=== PATIENT | male | born 1975 ===

== ENCOUNTER 2018-04-25 05:47 | Emergency (ER) | payer BC ==
[~2018-04-25] VITALS: Ht 180.3 cm; Wt 78.3 kg
[~2018-04-25 05:47] MED LIST: Z.0.NO CURRENT MEDS
[2018-04-25 05:48] VITALS: BP 114/72; PULSE 73; RESP 18; TEMP 98.6; O2SAT 99
[2018-04-25 06:01] VITALS: BP 114/72; PULSE 73; RESP 18; TEMP 98.6; O2SAT 99
[2018-04-25 06:26] VITALS: BP 125/73; PULSE 72; RESP 18; O2SAT 98
[2018-04-25 06:28] LABS: BLOOD, URINE NEG (NEG); GLUCOSE,URINE NEG (NEG); KETONE, URINE TRACE mg/dL (NEG); NITRITE,URINE NEG (NEG); PH, URINE 5.5 (5.0-8.5); URINE COLOR YELLOW (YELLW/STRAW); URINE LEUKOCYTE ESTERASE SMALL (NEG)
[2018-04-25 06:30] LABS: AUTOMATED NEUTROPHIL # 4.8 TH/MM3 (1.8-7.7); BASOPHIL # 0.1 TH/MM3 (0-0.2); BASOPHIL % 0.9 % (0.0-2.0); EOSINOPHIL # 0.2 TH/MM3 (0-0.4); EOSINOPHIL % 2.3 % (0.0-4.0); HEMOGLOBIN 13.4 GM/DL (13.0-17.0); LYMPH % 15.2 % (9.0-44.0); MEAN CELL VOLUME 91.2 FL (80.0-100.0); MEAN CORPUSCULAR HEMOGLOBIN 29.8 PG (27.0-34.0); MEAN CORPUSCULAR HGB CONC 32.6 % (32.0-36.0); MEAN PLATELET VOLUME 7.4 FL (7.0-11.0); MONO % 10.2 % (0.0-8.0); MONOCYTE # 0.7 TH/MM3 (0-0.9); NEUT % 71.4 % (16.0-70.0); PLATELET COUNT 208 TH/MM3 (150-450); RED BLOOD COUNT 4.49 MIL/MM3 (4.50-5.90); WHITE BLOOD COUNT 6.8 TH/MM3 (4.0-11.0)
[2018-04-25 06:33] LABS: BILIRUBIN, URINE NEG (NEG)
--- NOTE | 2018-04-25 06:33 | PD ---
HPI Chief Complaint: Flank/Kidney Pain Time Seen by Provider: 06:03 Travel History International Travel<30 days: No Contact w/Intl Traveler<30days: No Traveled to known affect area: No History of Present Illness HPI 42-year-old male presents the ER for evaluation of right upper quadrant pain that started last 3 days but has been getting worse. Pain is rated 5 out of 10 , comes and goes, has been getting worse, he tried [id number]-lzwahsq ibuprofen and Tylenol with no help, worse when he takes a deep breath in, nothing makes it better, no trauma to the abdomen or chest, no chest pain or shortness of breath although he says that it hurts when he takes a deep breath in, no fever or chills or night sweats or systemic symptoms. He has normal bowel movement yesterday without blood or diarrhea. He has no nausea or vomiting. He says he never had this type of pain before. PFSH Past Medical History Medical History: Denies Significant Hx Diminished Hearing: No Influenza Vaccination: No Past Surgical History Surgical History: No Previous Surgery Social History Alcohol Use: Yes (OCC) Tobacco Use: Yes (1 PPD) Substance Use: No Allergies-Medications (Allergen,Severity, Reaction): Coded Allergies: No Known Allergies (Verified Adverse Reaction, Unknown, 04/25/18) Reported Meds & Prescriptions Reported Meds & Active Scripts Active [place] (Hydrocodone-Acetaminophen) 7.5-325 mg Tab 1 Tab PO Q4H PRN Augmentin (Amoxicillin-Clavulanate) 875-125 Mg Tab 1 Tab PO BID 10 Days Review of Systems Except as stated in HPI: all other systems reviewed are Neg Physical Exam Narrative GENERAL: Alert oriented 3 no acute distress SKIN: Focused skin assessment warm/dry. HEAD: Atraumatic. Normocephalic. EYES: Pupils equal and round. No scleral icterus. No injection or drainage. ENT: No nasal bleeding or discharge. Mucous membranes pink and moist. NECK: Trachea midline. No JVD. CARDIOVASCULAR: Regular rate and rhythm. No murmur appreciated. RESPIRATORY: No accessory muscle use. Clear to auscultation. Breath sounds equal bilaterally. GASTROINTESTINAL: Right upper quadrant tenderness, positive Crocker sign, abdomen soft, nondistended. Hepatic and splenic margins not palpable. MUSCULOSKELETAL: No obvious deformities. No clubbing. No cyanosis. No edema. NEUROLOGICAL: Awake and alert. No obvious cranial nerve deficits. Motor grossly within normal limits. Normal speech. PSYCHIATRIC: Appropriate mood and affect; insight and judgment normal. Data Data Last Documented VS Vital Signs Date Time Temp Pulse Resp B/P (MAP) Pulse Ox O2 Delivery O2 Flow Rate FiO2 04/25/18 09:00 80 16 101/58 (72) 96 04/25/18 06:55 99.4 04/25/18 06:26 Room Air Orders Orders Complete Blood Count With Diff (04/25/18 06:03) Comprehensive Metabolic Panel (04/25/18 06:03) Lipase (04/25/18 06:03) Urinalysis - C+S If Indicated (04/25/18 06:03) Ct Abd/Pel W Iv Contrast(Rout) (04/25/18 ) Urine Culture (04/25/18 06:20) Iohexol 350 Inj (Omnipaque 350 Inj) (04/25/18 06:47) Ceftriaxone Inj (Rocephin Inj) (04/25/18 07:45) Chest, Pa & Lat (04/25/18 07:40) Ketorolac Inj (Toradol Inj) (04/25/18 08:15) Ed Discharge Order (04/25/18 08:19) Labs Laboratory Tests Test 04/25/18 06:20 White Blood Count 6.8 TH/MM3 Red Blood Count 4.49 MIL/MM3 Hemoglobin 13.4 GM/DL Hematocrit 41.0 % Mean Corpuscular Volume 91.2 FL Mean Corpuscular Hemoglobin 29.8 PG Mean Corpuscular Hemoglobin Concent 32.6 % Red Cell Distribution Width 12.0 % Platelet Count 208 TH/MM3 Mean Platelet Volume 7.4 FL Neutrophils (%) (Auto) 71.4 % Lymphocytes (%) (Auto) 15.2 % Monocytes (%) (Auto) 10.2 % Eosinophils (%) (Auto) 2.3 % Basophils (%) (Auto) 0.9 % Neutrophils # (Auto) 4.8 TH/MM3 Lymphocytes # (Auto) 1.0 TH/MM3 Monocytes # (Auto) 0.7 TH/MM3 Eosinophils # (Auto) 0.2 TH/MM3 Basophils # (Auto) 0.1 TH/MM3 CBC Comment DIFF FINAL Differential Comment Urine Collection Type CLEAN CATCH Urine Color YELLOW Urine Turbidity CLEAR Urine pH 5.[address] [place] GREATER/EQUAL 1.030 Urine Protein TRACE mg/dL Urine Glucose (UA) NEG mg/dL Urine Ketones TRACE mg/dL Urine Occult Blood NEG Urine Nitrite NEG Urine Bilirubin NEG Urine Urobilinogen 1.0 MG/DL Urine Leukocyte Esterase SMALL Urine RBC 0-3 /hpf Urine WBC 25-49 /hpf Urine Squamous Epithelial Cells 0-5 /hpf Urine Amorphous Sediment MOD Urine Bacteria FEW /hpf Microscopic Urinalysis Comment CULTURE INDICATED Urine Collection Time 0620 Blood Urea Nitrogen 16 MG/DL Creatinine 0.96 MG/DL Random Glucose 106 MG/DL Total Protein 8.4 GM/DL Albumin 4.2 GM/DL Calcium Level 8.6 MG/DL Alkaline Phosphatase 91 U/L Aspartate Amino Transf (AST/SGOT) 24 U/L Alanine Aminotransferase (ALT/SGPT) 31 U/L Total Bilirubin 1.3 MG/DL Sodium Level 138 MEQ/L Potassium Level 3.7 MEQ/L Chloride Level 104 MEQ/L Carbon Dioxide Level 28.7 MEQ/L Anion Gap 5 MEQ/L Estimat Glomerular Filtration Rate 85 ML/MIN Lipase 110 U/L [facility] Medical Decision Making Medical Screen Exam Complete: Yes Emergency Medical Condition: Yes Differential Diagnosis UTI, cholecystitis, nephrolithiasis, pyelonephritis. Narrative Course 41-year-old here for evaluation of abdominal pain. Pending labs and CAT scan. Will be signed out to dr. Willoughby next shift pending disposition. Diagnosis Primary Impression: UTI (urinary tract infection) Qualified Codes: N39.0 - Urinary tract infection, site not specified Scripts Hydrocodone-Acetaminophen ([place]) 7.5-325 mg Tab 1 TAB PO Q4H Y for PAIN, #12 TAB 0 Refills Prov: Hussain Willoughby MD 04/25/18 Amoxicillin-Clavulanate (Augmentin) 875-125 Mg Tab 1 TAB PO BID for Infection for 10 Days, #20 TAB 0 Refills Prov: Hussain Willoughby MD 04/25/18 Disposition: DISCHARGE HOME Condition: Stable Geovanny Belcher MD Apr 25, 2018 06:33
[2018-04-25 06:36] LABS: AMORPHOUS SEDIMENT, URINE MOD; BACTERIA, URINE FEW /hpf; CHLORIDE 104 MEQ/L (98-107); RBC, URINE 0-3 /hpf (0-3); SODIUM (NA) 138 MEQ/L (136-145); SQUAMOUS EPITHELIAL CELL URINE 0-5 /hpf (0-5)
[2018-04-25 06:40] LABS: ALBUMIN 4.2 GM/DL (3.4-5.0); BICARBONATE 28.7 MEQ/L (21.0-32.0); BLOOD UREA NITROGEN 16 MG/DL (7-18); CALCIUM 8.6 MG/DL (8.5-10.1); GLUCOSE,RANDOM 106 MG/DL (74-106)
[2018-04-25 06:43] LABS: ALT (GPT) 31 U/L (12-78); AST (GOT) 24 U/L (15-37); CREATININE 0.96 MG/DL (0.60-1.30); GLOMERULAR FILTRATION RATE 85 ML/MIN (>89)
[2018-04-25 06:45] LABS: TOTAL BILIRUBIN ADULT 1.3 MG/DL (0.2-1.0); TOTAL PROTEIN 8.4 GM/DL (6.4-8.2)
[2018-04-25 06:46] LABS: ALKALINE PHOSPHATASE 91 U/L (45-117)
[2018-04-25] MEDS ORDERED: IOHEXOL 350 MG/ML 10 ML VIAL (for RAD DIAG) IVCONTRAST ONE (06:47)
[2018-04-25 06:55] VITALS: BP 141/75; PULSE 76; RESP 16; TEMP 99.4; O2SAT 97
--- NOTE | 2018-04-25 07:26 | RADRPT ---
EXAM DATE: 04/25/2018 6:46 AM EDT AGE/SEX: 42 years / Male INDICATIONS: Right flank pain. CLINICAL DATA: This is the patient's initial encounter. Patient reports that signs and symptoms have been present for 1 day and indicates a pain score of 8/10. MEDICAL/SURGICAL HISTORY: None. None. ORAL CONTRAST: No oral contrast ingested. RADIATION DOSE: 7.85 CTDI (mGy) COMPARISON: No prior [place] exams available for comparison. TECHNIQUE: Multiple contiguous axial images were obtained through the abdomen and pelvis following b olus infusion of 100 ml Omnipaque 350 (iohexol) nonionic water-soluble contrast as a single exam do se. No oral contrast ingested. Using automated exposure control and adjustment of the mA and/or kV a ccording to patient size, the radiation dose was kept as low as reasonably achievable to obtain optim al diagnostic quality images. FINDINGS: Lower Lungs: Patchy nodular consolidation seen of the right lung base. Individual subpleural nodules measures 9 mm, series 5 image 9 and 13 mm on series 5 image 12. This process is presumably infectious or inflammatory but requires follow-up. Liver: The liver has a homogeneous density without space-occupying lesion. There is no dilation of th e biliary tree. Spleen: Homogeneous density without enlargement. Pancreas: Unremarkable without mass or calcification. Kidneys: Normal in size and shape. No evidence of mass or hydronephrosis. Adrenal Glands: Unremarkable. Aorta: The aorta and proximal iliac vessels are grossly unremarkable without aneurysmal dilation. Bowel/Mesentery: The bowel loops are grossly unremarkable. The cecum and sigmoid colon have a normal configuration. Appendix within normal limits. Abdominal Wall: Intact. Retroperitoneum: No evidence of adenopathy in the retrocrural, para-aortic, or deep pelvic regions. Bladder: Contours are smooth. Reproductive Organs: No abnormal masses or calcifications seen. Inguinal: The inguinal region is unremarkable without evidence of adenopathy. Bony Structures: Unremarkable. CONCLUSION: 1. No acute abnormality demonstrated within the abdomen or pelvis. 2. There is patchy nodular infiltrate of the visualized right lung base, most likely infectious or i nflammatory. Clinical correlation and if applicable medical management recommended. A follow-up nonco ntrast chest CT is suggested in 3 months. Electronically signed by: Carlo Hernández MD 04/25/2018 7:25 AM EDT
--- NOTE | 2018-04-25 07:26 | PD ---
Physical Exam Date Seen by Provider: Apr 25, 2018 Time Seen by Provider: 07:24 Narrative This 42-year-old male has been having some right flank pain for about 24 hours. Pain started off yesterday morning and has gotten progressively worse and is quite severe. It is aggravated by deep breathing. He does not have any dysuria. He does say that he was treated for gonorrhea's several months ago he was seen initially by Dr. Trinidad who ordered a complete workup. His hemoglobin is 13 4 with a white count of 6.8. Urinalysis shows 25-59 white cells. Data Data Last Documented VS Vital Signs Date Time Temp Pulse Resp B/P (MAP) Pulse Ox O2 Delivery O2 Flow Rate FiO2 04/25/18 06:55 99.4 76 16 141/75 (97) 97 04/25/18 06:26 Room Air Orders Orders Complete Blood Count With Diff (04/25/18 06:03) Comprehensive Metabolic Panel (04/25/18 06:03) Lipase (04/25/18 06:03) Urinalysis - C+S If Indicated (04/25/18 06:03) Ct Abd/Pel W Iv Contrast(Rout) (04/25/18 ) Urine Culture (04/25/18 06:20) Iohexol 350 Inj (Omnipaque 350 Inj) (04/25/18 06:47) Ceftriaxone Inj (Rocephin Inj) (04/25/18 07:45) Chest, Pa & Lat (04/25/18 07:40) Ketorolac Inj (Toradol Inj) (04/25/18 08:15) Labs Laboratory Tests Test 04/25/18 06:20 White Blood Count 6.8 TH/MM3 Red Blood Count 4.49 MIL/MM3 Hemoglobin 13.4 GM/DL Hematocrit 41.0 % Mean Corpuscular Volume 91.2 FL Mean Corpuscular Hemoglobin 29.8 PG Mean Corpuscular Hemoglobin Concent 32.6 % Red Cell Distribution Width 12.0 % Platelet Count 208 TH/MM3 Mean Platelet Volume 7.4 FL Neutrophils (%) (Auto) 71.4 % Lymphocytes (%) (Auto) 15.2 % Monocytes (%) (Auto) 10.2 % Eosinophils (%) (Auto) 2.3 % Basophils (%) (Auto) 0.9 % Neutrophils # (Auto) 4.8 TH/MM3 Lymphocytes # (Auto) 1.0 TH/MM3 Monocytes # (Auto) 0.7 TH/MM3 Eosinophils # (Auto) 0.2 TH/MM3 Basophils # (Auto) 0.1 TH/MM3 CBC Comment DIFF FINAL Differential Comment Urine Collection Type CLEAN CATCH Urine Color YELLOW Urine Turbidity CLEAR Urine pH 5.5 Urine Specific [place] GREATER/EQUAL 1.030 Urine Protein TRACE mg/dL Urine Glucose (UA) NEG mg/dL Urine Ketones TRACE mg/dL Urine Occult Blood NEG Urine Nitrite NEG Urine Bilirubin NEG Urine Urobilinogen 1.0 MG/DL Urine Leukocyte Esterase SMALL Urine RBC 0-3 /hpf Urine WBC 25-49 /hpf Urine Squamous Epithelial Cells 0-5 /hpf Urine Amorphous Sediment MOD Urine Bacteria FEW /hpf Microscopic Urinalysis Comment CULTURE INDICATED Urine Collection Time 0620 Blood Urea Nitrogen 16 MG/DL Creatinine 0.96 MG/DL Random Glucose 106 MG/DL Total Protein 8.4 GM/DL Albumin 4.2 GM/DL Calcium Level 8.6 MG/DL Alkaline Phosphatase 91 U/L Aspartate Amino Transf (AST/SGOT) 24 U/L Alanine Aminotransferase (ALT/SGPT) 31 U/L Total Bilirubin 1.3 MG/DL Sodium Level 138 MEQ/L Potassium Level 3.7 MEQ/L Chloride Level 104 MEQ/L Carbon Dioxide Level 28.7 MEQ/L Anion Gap 5 MEQ/L Estimat Glomerular Filtration Rate 85 ML/MIN Lipase 110 U/L [facility] Medical Record Reviewed: Yes Supervised Visit with JOSH: No Differential Diagnosis Differential includes cholecystitis, pyelonephritis, pneumonia Narrative Course CT scan is read as showing a nodular infiltrate in the visualized lung base. Because of this a chest x-ray was ordered which does not show any other abnormality. Patient clearly does have a urinary tract infection and question of some pneumonia. He does not have a clinical presentation of pneumonia and that he does not have a cough. He will be placed on Augmentin and he will be released. Diagnosis Primary Impression: Urinary tract infection Additional Impression: Pneumonia Scripts Hydrocodone-Acetaminophen ([place]) 7.5-325 mg Tab 1 TAB PO Q4H Y for PAIN, #12 TAB 0 Refills Prov: Hussain Adamson MD 04/25/18 Amoxicillin-Clavulanate (Augmentin) 875-125 Mg Tab 1 TAB PO BID for Infection for 10 Days, #20 TAB 0 Refills Prov: Hussain Adamson MD 04/25/18 Disposition: 01 DISCHARGE HOME Condition: Stable Hussain Adamson MD Apr 25, 2018 07:26
[2018-04-25] MEDS ORDERED: cefTRIAXone INJ 2,000 MG in SODIUM CHLORIDE 0.9% INJ 100 ML IV ONE (07:45)
--- NOTE | 2018-04-25 08:11 | RADRPT ---
EXAM DATE: 04/25/2018 8:04 AM EDT AGE/SEX: 42 years / Male INDICATIONS: Right lower chest/flank pain for over 24 hours progressively increasing. Painful deep i nspirations w/ no known injury. CLINICAL DATA: This is the patient's initial encounter. Patient reports that signs and symptoms have been present for 2 days and indicates a pain score of 8/10. MEDICAL/SURGICAL HISTORY: None. None. COMPARISON: [facility], CT ABDOMEN & PELVIS W CONTRAST, 04/25/2018. . FINDINGS: Frontal and lateral views of the chest demonstrate a normal-sized cardiac silhouette. No effusion, co nsolidation, or pneumothorax is identified. There is a linear opacity at the right lung base. The bon es and soft tissues demonstrate no acute finding. CONCLUSION: No acute cardiopulmonary abnormality is identified. There is a linear opacity at the right lung base representing either subsegmental atelectasis or parenchymal scar. Electronically signed by: Carlo Drake MD 04/25/2018 8:10 AM EDT
[2018-04-25] MEDS ORDERED: KETOROLAC TROMETHAMINE 30 MG/ML (IVP) VIAL IV PUSH ONE (08:15)
[2018-04-25] MEDS ORDERED: HYDR-3288 PO (08:16)
[2018-04-25] MEDS ORDERED: AUGM875T3 PO (08:16)
[2018-04-25 09:00] VITALS: BP 101/58
== END 2018-04-25 09:00 | disposition home or self-care (01) ==
LOC: PHED 05:47
DX: N39.0 Urinary tract infection, site not specified (principal); B96.1 Klebsiella pneumoniae [K. pneumoniae] as the cause of diseases classified elsewhere; J18.9 Pneumonia, unspecified organism; F17.200 Nicotine dependence, unspecified, uncomplicated
CPT/HCPCS: 71046; 74177; 80053; 81001; 83690; 85025; 87077; 87086; 87186; 96365; 96375; 99285; J0696; J1885; Q9967

== ENCOUNTER 2018-05-02 09:28 | Observation (INO) | payer BC ==
[~2018-05-02] VITALS: Ht 180.3 cm; Wt 76.8 kg
[2018-05-02] VITALS (7 sets, daily range): BP systolic 115–128; BP diastolic 69–76; PULSE 70–94; RESP 16–20; TEMP 96.9–98.3; O2SAT 97–100
[~2018-05-02 09:28] MED LIST changes: +AUGM875T3 PO; +HYDR-3288 PO; -Z.0.NO CURRENT MEDS
[2018-05-02 10:03] LABS: AUTOMATED NEUTROPHIL # 5.7 TH/MM3 (1.8-7.7); BASOPHIL # 0.1 TH/MM3 (0-0.2); BASOPHIL % 0.8 % (0.0-2.0); EOSINOPHIL # 0.2 TH/MM3 (0-0.4); HEMATOCRIT 40.5 % (39.0-51.0); HEMOGLOBIN 13.7 GM/DL (13.0-17.0); LYMPH % 22.3 % (9.0-44.0); LYMPHOCYTE # 1.9 TH/MM3 (1.0-4.8); MEAN CELL VOLUME 89.1 FL (80.0-100.0); MEAN CORPUSCULAR HEMOGLOBIN 30.2 PG (27.0-34.0); MEAN CORPUSCULAR HGB CONC 33.9 % (32.0-36.0); MEAN PLATELET VOLUME 7.2 FL (7.0-11.0); MONO % 4.6 % (0.0-8.0); MONOCYTE # 0.4 TH/MM3 (0-0.9); NEUT % 70.3 % (16.0-70.0); PLATELET COUNT 476 TH/MM3 (150-450); RED BLOOD COUNT 4.55 MIL/MM3 (4.50-5.90); RED CELL DISTRIBUTION WIDTH 12.2 % (11.6-17.2); WHITE BLOOD COUNT 8.3 TH/MM3 (4.0-11.0)
[2018-05-02] MEDS ORDERED: SODIUM CHLOR 0.9% 1000 ML INJ 1,000 ML IV SCH (10:13)
[2018-05-02] MEDS ORDERED: KETOROLAC TROMETHAMINE 30 MG/ML (IVP) VIAL IVP ONE (10:15)
--- NOTE | 2018-05-02 10:21 | PD ---
HPI Chief Complaint: Abdominal Pain Time Seen by Provider: 10:12 Travel History International Travel<30 days: No Contact w/Intl Traveler<30days: No Traveled to known affect area: No History of Present Illness HPI This is a 42-year-old male here with right lower quadrant pain worsening over the last 3 days. Patient is currently being treated for UTI. He reports compliance with his antibiotics. He describes the pain as constant sharp pain localized to the right lower quadrant. He reports the pain originated to the right mid upper quadrant and has now localized down to the right lower quadrant over the last 3 days. Nausea without vomiting. Decreased appetite. No change in bowel movements. Reported fevers several days ago which have resolved since starting antibiotics. Symptom severity is moderate. Pain is aggravated by palpation of the abdomen. No alleviating factors PFSH Past Medical History Medical History: Denies Significant Hx Diminished Hearing: No Social History Alcohol Use: Yes (OCC) Tobacco Use: Yes (vape) Substance Use: No Allergies-Medications (Allergen,Severity, Reaction): Coded Allergies: No Known Allergies (Verified Adverse Reaction, Unknown, 05/02/18) Reported Meds & Prescriptions Reported Meds & Active Scripts Active Augmentin (Amoxicillin-Clavulanate) 875-125 Mg Tab 1 Tab PO BID 10 Days Review of Systems Except as stated in HPI: all other systems reviewed are Neg General / Constitutional: No: Fever Eyes: No: Visual changes HENT: No: Headaches Cardiovascular: No: Chest Pain or Discomfort Respiratory: No: Shortness of Breath Gastrointestinal: Positive: Nausea, Abdominal Pain Genitourinary: No: Dysuria Musculoskeletal: No: Pain Skin: No Rash Neurologic: No: Weakness Physical Exam Narrative GENERAL: Alert and well-appearing 42-year-old male SKIN: Warm and dry. HEAD: Normocephalic. EYES: No injection or drainage. NECK: Supple, trachea midline. No JVD or lymphadenopathy. CARDIOVASCULAR: Regular rate and rhythm without murmurs, gallops, or rubs. RESPIRATORY: Breath sounds equal bilaterally. No accessory muscle use. GASTROINTESTINAL: Abdomen soft,+TTP RLQ with guarding, nondistended. MUSCULOSKELETAL: No cyanosis, or edema. BACK: Nontender without obvious deformity. No CVA tenderness. Data Data Last Documented VS Vital Signs Date Time Temp Pulse Resp B/P (MAP) Pulse Ox O2 Delivery O2 Flow Rate FiO2 05/02/18 10:55 71 16 125/75 (92) 99 Room Air 05/02/18 09:32 98.3 Orders Orders Urinalysis - C+S If Indicated (05/02/18 09:30) Complete Blood Count With Diff (05/02/18 09:55) Comprehensive Metabolic Panel (05/02/18 09:55) Lipase (05/02/18 09:55) Ct Abd/Pel W Iv Contrast(Rout) (05/02/18 10:13) Iv Access Insert/Monitor (05/02/18 10:13) Ecg Monitoring (05/02/18 10:13) Oximetry (05/02/18 10:13) Sodium Chlor 0.9% 1000 Ml Inj (Ns 1000 M (05/02/18 10:13) Ketorolac Inj (Toradol Inj) (05/02/18 10:15) Iohexol 350 Inj (Omnipaque 350 Inj) (05/02/18 11:36) Prothrombin Time / Inr (Pt) (05/02/18 12:04) Act Partial Throm Time (Ptt) (05/02/18 12:04) NPO (05/02/18 12:04) Electrocardiogram (05/02/18 12:04) Piperacil-Tazo 3.375 Gm Premix (Zosyn 3. (05/02/18 12:15) Labs Laboratory Tests Test 05/02/18 09:40 05/02/18 09:55 Urine Collection Type CLEAN CATCH Urine Color YELLOW Urine Turbidity CLEAR Urine pH 5.5 Urine Specific [place] 1.010 Urine Protein NEG mg/dL Urine Glucose (UA) NEG mg/dL Urine Ketones NEG mg/dL Urine Occult Blood NEG Urine Nitrite NEG Urine Bilirubin NEG Urine Urobilinogen 0.2 MG/DL Urine Leukocyte Esterase NEG Urine RBC 0-3 /hpf Urine Squamous Epithelial Cells 0-5 /hpf Microscopic Urinalysis Comment CULT NOT INDICATED White Blood Count 8.3 TH/MM3 Red Blood Count 4.55 MIL/MM3 Hemoglobin 13.7 GM/DL Hematocrit 40.5 % Mean Corpuscular Volume 89.1 FL Mean Corpuscular Hemoglobin 30.2 PG Mean Corpuscular Hemoglobin Concent 33.9 % Red Cell Distribution Width 12.2 % Platelet Count 476 TH/MM3 Mean Platelet Volume 7.2 FL Neutrophils (%) (Auto) 70.3 % Lymphocytes (%) (Auto) 22.3 % Monocytes (%) (Auto) 4.6 % Eosinophils (%) (Auto) 2.0 % Basophils (%) (Auto) 0.8 % Neutrophils # (Auto) 5.7 TH/MM3 Lymphocytes # (Auto) 1.9 TH/MM3 Monocytes # (Auto) 0.4 TH/MM3 Eosinophils # (Auto) 0.2 TH/MM3 Basophils # (Auto) 0.1 TH/MM3 CBC Comment DIFF FINAL Differential Comment Blood Urea Nitrogen 14 MG/DL Creatinine 0.93 MG/DL Random Glucose 100 MG/DL Total Protein 8.8 GM/DL Albumin 4.1 GM/DL Calcium Level 9.4 MG/DL Alkaline Phosphatase 92 U/L Aspartate Amino Transf (AST/SGOT) 17 U/L Alanine Aminotransferase (ALT/SGPT) 34 U/L Total Bilirubin 1.1 MG/DL Sodium Level 139 MEQ/L Potassium Level 3.7 MEQ/L Chloride Level 102 MEQ/L Carbon Dioxide Level 30.1 MEQ/L Anion Gap 7 MEQ/L Estimat Glomerular Filtration Rate 89 ML/MIN Lipase 134 U/L [facility] Medical Decision Making Medical Screen Exam Complete: Yes Emergency Medical Condition: Yes Interpretation(s) Afebrile. Normotensive. No tachycardia Differential Diagnosis Appendicitis, UTI, pyelonephritis Narrative Course 42-year-old male here with right lower quadrant pain [address] findings consistent with acute appendicitis without perforation. Spoke with general surgery Dr. Riggs he would like the patient kept NPO, Zosyn IV, plan to take to the OR today. Spoke with Dr. Giordano [facility] who agrees to admit patient to their service. Diagnosis Primary Impression: Acute appendicitis Qualified Codes: K35.80 - Unspecified acute appendicitis Admitting Information Admitting Physician Requests: Admit Elinor Read May 02, 2018 10:21
[2018-05-02 10:22] LABS: CHLORIDE 102 MEQ/L (98-107); SODIUM (NA) 139 MEQ/L (136-145)
[2018-05-02 10:25] LABS: CALCIUM 9.4 MG/DL (8.5-10.1)
[2018-05-02 10:26] LABS: ALBUMIN 4.1 GM/DL (3.4-5.0); BICARBONATE 30.1 MEQ/L (21.0-32.0); BLOOD UREA NITROGEN 14 MG/DL (7-18); GLUCOSE,RANDOM 100 MG/DL (74-106)
[2018-05-02 10:29] LABS: ALT (GPT) 34 U/L (12-78); AST (GOT) 17 U/L (15-37); CREATININE 0.93 MG/DL (0.60-1.30); GLOMERULAR FILTRATION RATE 89 ML/MIN (>89)
[2018-05-02 10:30] LABS: TOTAL BILIRUBIN ADULT 1.1 MG/DL (0.2-1.0); TOTAL PROTEIN 8.8 GM/DL (6.4-8.2)
[2018-05-02 10:32] LABS: ALKALINE PHOSPHATASE 92 U/L (45-117)
[2018-05-02 11:16] LABS: BILIRUBIN, URINE NEG (NEG); BLOOD, URINE NEG (NEG); GLUCOSE,URINE NEG (NEG); KETONE, URINE NEG (NEG); NITRITE,URINE NEG (NEG); PH, URINE 5.5 (5.0-8.5); URINE COLOR YELLOW (YELLW/STRAW); URINE LEUKOCYTE ESTERASE NEG (NEG)
[2018-05-02 11:26] LABS: RBC, URINE 0-3 /hpf (0-3); SQUAMOUS EPITHELIAL CELL URINE 0-5 /hpf (0-5)
[2018-05-02] MEDS ORDERED: IOHEXOL 350 MG/ML 10 ML VIAL (for RAD DIAG) IVCONTRAST ONE (11:36)
--- NOTE | 2018-05-02 11:44 | RADRPT ---
EXAM DATE: 05/02/2018 11:36 AM EDT AGE/SEX: 42 years / Male INDICATIONS: Right lower quadrant pain. CLINICAL DATA: This is the patient's initial encounter. Patient reports that signs and symptoms have been present for 3 days and indicates a pain score of 8/10. MEDICAL/SURGICAL HISTORY: None. None. ORAL CONTRAST: No oral contrast ingested. RADIATION DOSE: 7.22 CTDI (mGy) COMPARISON: [facility], CT ABDOMEN & PELVIS W CONTRAST, 04/25/2018. . TECHNIQUE: Multiple contiguous axial images were obtained through the abdomen and pelvis following b olus infusion of 95 ml Omnipaque 350 (iohexol) nonionic water-soluble contrast as a single exam dos e. No oral contrast ingested. Using automated exposure control and adjustment of the mA and/or kV ac cording to patient size, the radiation dose was kept as low as reasonably achievable to obtain optima l diagnostic quality images. FINDINGS: Small 1 cm peripheral opacity right base nonspecific. The liver and gallbladder unremarkable Spleen and pancreas appear normal Adrenals and kidneys are unremarkable There is no ascites or adenopathy Cecum is unremarkable. There is mild prominence to the appendix with minimal inflammatory changes. Fi ndings would be consistent with an early acute appendicitis. Pelvic contents are unremarkable. A CONCLUSION: 1. Findings consistent with acute appendicitis without perforation. Electronically signed by: Anatoliy Silva MD 05/02/2018 11:42 AM EDT
[2018-05-02] MEDS ORDERED: PIPERACIL-TAZO 3.375 GM PREMIX 50 ML IV ONE (12:15)
[2018-05-02] MEDS ORDERED: SODIUM CHLORIDE 0.9% FLUSH 10 ML FLUSH IV FLUSH PRN (12:30)
[2018-05-02] MEDS ORDERED: ACETAMINOPHEN 325 MG TAB PO PRN (12:30)
[2018-05-02] MEDS ORDERED: BISACODYL 10 MG SUPP RECTAL PRN (12:30)
[2018-05-02] MEDS ORDERED: METOCLOPRAMIDE HCL 10 MG/2 ML VIAL IV PUSH PRN (12:30)
[2018-05-02] MEDS ORDERED: LACTULOSE SYRUP 20 GM/30 ML CUP PO PRN (12:30)
[2018-05-02] MEDS ORDERED: SENNOSIDES 8.6 MG TAB PO PRN (12:30)
[2018-05-02] MEDS ORDERED: NALOXONE HCL 0.4 MG/ML AMP IV PUSH PRN (12:30)
[2018-05-02] MEDS ORDERED: MAGNESIUM HYDROXIDE SUSP 30 ML CUP PO PRN (12:30)
--- NOTE | 2018-05-02 12:45 | HHI.HP ---
[facility] [place] [facility] Primary Care Physician No Primary Care Physician Admission Diagnosis Acute appendicitis Diagnoses: (1) Acute appendicitis Chief Complaint: Abdominal pain Travel History International Travel<30 Days: No Contact w/Intl Traveler <30 Da: No Traveled to Known Affected Are: No History of Present Illness This is a pleasant 42-year-old male patient with no known medical history who presented to the ED with complaints of severe right upper quadrant abdominal pain. Patient states that he presented to the emergency department 1 week ago for complaints of right upper and lower quadrant abdominal pain, + UA and at that time was treated for a UTI and questionable pneumonia, was given Augmentin and sent home. Patient states that his symptoms did improve slightly over the next few days with the use of the antibiotic, but the pain in his right lower quadrant returned and actually worsened. Patient states that the pain in his right lower quadrant has worsened over the last 3 days, does admit to subjective fever up to 101 at home. Rates the pain a 10 out of 10 at its worst on pain scale, states that he also had associated bloating and nausea. Denies any vomiting. Patient states his last bowel movement was this morning, was soft and formed denied any diarrhea. Patient denies any recent bloody or black stools. Upon presentation patient's UA is negative. White blood cell within normal limits. Bilirubin 1.1. CT abdomen/pelvis showing acute appendicitis without perforation. Patient started on IV Zosyn. Was given 1 L NS bolus continued on IV fluids. Will keep n.p.o. for now, plan for OR this afternoon with general surgery. Past Family Social History Past Medical History No medical history. Past Surgical History Denies any prior surgery. Reported Medications Does not take any medicines at home. Allergies: Coded Allergies: No Known Allergies (Verified Adverse Reaction, Unknown, 05/02/18) Active Ordered Medications Current Medications Medications (Trade) Dose Ordered Sig/Ayesha Route Start Time Stop Time Status Last Admin Sodium Chloride 1,000 ml @ 100 mls/hr Q10H IV 05/02/18 13:00 (NS Flush) 2 ml UNSCH PRN IV FLUSH 05/02/18 12:30 (NS Flush) 2 ml BID IV FLUSH 05/02/18 21:00 (Tylenol) 650 mg Q4H PRN PO 05/02/18 12:30 (Reglan Inj) 5 mg Q6H PRN IV PUSH 05/02/18 12:30 UNV (Narcan Inj) 0.4 mg UNSCH PRN IV PUSH 05/02/18 12:30 UNV (Michaelle-Colace) 1 tab BID PO 05/02/18 21:00 UNV (Milk Of Magnesia Liq) 30 ml Q12H PRN PO 05/02/18 12:30 UNV (Senokot) 17.2 mg Q12H PRN PO 05/02/18 12:30 UNV (Dulcolax Supp) 10 mg DAILY PRN RECTAL 05/02/18 12:30 UNV (Lactulose Liq) 30 ml DAILY PRN PO 05/02/18 12:30 UNV Family History Paternal medical history significant for colon cancer. Mother has history of hypertension. Social History Patient does admit to smoking 1 pack per day cigarettes for up to 10 years, states he quit 2 years ago. He does currently vap. Denies any alcohol use, states he quit drinking 6 months ago. Denies any illicit drug use. Physical Exam Vital Signs Vital Signs Date Time Temp Pulse Resp B/P (MAP) Pulse Ox O2 Delivery O2 Flow Rate FiO2 05/02/18 10:55 71 16 125/75 (92) 99 Room Air 05/02/18 10:19 98 Room Air 05/02/18 09:32 98.3 77 16 118/76 (90) 98 Physical Exam GENERAL: Well-developed, well-nourished patient in [facility]. SKIN: Warm and dry. No rash. HEAD: Normocephalic. Atraumatic. EYES: Pupils equal and round. No scleral icterus. No injection or drainage. ENT: No nasal bleeding or discharge. Mucous membranes pink and moist. NECK: Supple. Trachea midline. CARDIOVASCULAR: Regular rate and rhythm. S1, S2 noted. No murmur appreciated. RESPIRATORY: No accessory muscle use. Clear to auscultation. Breath sounds equal bilaterally. GASTROINTESTINAL: Abdomen soft, nondistended. Normoactive bowel sounds x4. Diffuse tenderness to palpation in right upper and lower quadrant. MUSCULOSKELETAL: No obvious deformities. Extremities without clubbing, cyanosis , or edema. NEUROLOGICAL: Awake and alert. No obvious cranial nerve deficits. Motor grossly within normal limits. 5/5 muscle strength in bilateral upper and lower extremities. Normal speech. PSYCHIATRIC: Appropriate mood and affect; insight and judgment normal. Laboratory Laboratory Tests Test 05/02/18 09:40 05/02/18 09:55 05/02/18 12:10 Urine Collection Type CLEAN CATCH Urine Color YELLOW Urine Turbidity CLEAR Urine pH 5.5 Urine Specific [place] 1.010 Urine Protein NEG Urine Glucose (UA) NEG Urine Ketones NEG Urine Occult Blood NEG Urine Nitrite NEG Urine Bilirubin NEG Urine Urobilinogen 0.2 Urine Leukocyte Esterase NEG Urine RBC 0-3 Urine Squamous Epithelial Cells 0-5 Microscopic Urinalysis Comment CULT NOT INDICATED White Blood Count 8.3 Red Blood Count 4.55 Hemoglobin 13.7 Hematocrit 40.5 Mean Corpuscular Volume 89.1 Mean Corpuscular Hemoglobin 30.2 Mean Corpuscular Hemoglobin Concent 33.9 Red Cell Distribution Width 12.2 Platelet Count 476 Mean Platelet Volume 7.2 Neutrophils (%) (Auto) 70.3 Lymphocytes (%) (Auto) 22.3 Monocytes (%) (Auto) 4.6 Eosinophils (%) (Auto) 2.0 Basophils (%) (Auto) 0.8 Neutrophils # (Auto) 5.7 Lymphocytes # (Auto) 1.9 Monocytes # (Auto) 0.4 Eosinophils # (Auto) 0.2 Basophils # (Auto) 0.1 CBC Comment DIFF FINAL Differential Comment Blood Urea Nitrogen 14 Creatinine 0.93 Random Glucose 100 Total Protein 8.8 Albumin 4.1 Calcium Level 9.4 Alkaline Phosphatase 92 Aspartate Amino Transf (AST/SGOT) 17 Alanine Aminotransferase (ALT/SGPT) 34 Total Bilirubin 1.1 Sodium Level 139 Potassium Level 3.7 Chloride Level 102 Carbon Dioxide Level 30.1 Anion Gap 7 Estimat Glomerular Filtration Rate 89 Lipase 134 Result Diagram: 05/02/18 0955 05/02/18 0955 Imaging Last Impressions Abdomen/Pelvis CT 05/02/18 1013 Signed Impressions: CONCLUSION: 1. Findings consistent with acute appendicitis without perforation. Septic Shock Reassessment Septic shock perfusion: reassessment completed Caprini VTE Risk Assessment Caprini VTE Risk Assessment: No/Low Risk (score <= 1) Caprini Risk Assessment Model Point Value = 1 Point Value = 2 Point Value = 3 Point Value = 5 Age 41-60 Minor surgery BMI > 25 kg/m2 Swollen legs Varicose veins or History of unexplained or recurrent spontaneous Oral contraceptives or hormone replacement Sepsis (< 1 month) Serious lung disease, including pneumonia (< 1 month) Abnormal pulmonary function Acute myocardial infarction Congestive heart failure (< 1 month) History of inflammatory bowel disease Medical patient at bed rest Age 61-74 Arthroscopic surgery Major open surgery (> 45 min) Laparoscopic surgery (> 45 min) Malignancy Confined to bed (> 72 hours) Immobilizing plaster cast Central venous access Age >= 75 History of VTE Family history of VTE Factor V Leiden Prothrombin [id number] Lupus anticoagulant Anticardiolipin antibodies Elevated serum homocysteine Heparin-induced thrombocytopenia Other congenital or acquired thrombophilia Stroke (< 1 month) Elective arthroplasty Hip, pelvis, or leg fracture Acute spinal cord injury (< 1 month) Prophylaxis Regimen Total Risk Factor Score Risk Level Prophylaxis Regimen 0-1 Low Early ambulation 2 Moderate Order ONE of the following: *Sequential Compression Device (SCD) *Heparin 5000 units SQ BID 3-4 Higher Order ONE of the following medications: *Heparin 5000 units SQ TID *Enoxaparin/Lovenox 40 mg SQ daily (WT < 150 kg, CrCl > 30 mL/min) *Enoxaparin/Lovenox 30 mg SQ daily (WT < 150 kg, CrCl > 10-29 mL/min) *Enoxaparin/Lovenox 30 mg SQ BID (WT < 150 kg, CrCl > 30 mL/min) AND/OR *Sequential Compression Device (SCD) 5 or more Highest Order ONE of the following medications: *Heparin 5000 units SQ TID (Preferred with Epidurals) *Enoxaparin/Lovenox 40 mg SQ daily (WT < 150 kg, CrCl > 30 mL/min) *Enoxaparin/Lovenox 30 mg SQ daily (WT < 150 kg, CrCl > 10-29 mL/min) *Enoxaparin/Lovenox 30 mg SQ BID (WT < 150 kg, CrCl > 30 mL/min) AND *Sequential Compression Device (SCD) Assessment and Plan Problem List: (1) Acute appendicitis ICD Code: K35.80 - Unspecified acute appendicitis Status: Acute Assessment and Plan This is a pleasant 42-year-old male patient with no known medical history who presented to the ED with complaints of severe right upper quadrant abdominal pain. Acute appendicitis with associated severe right sided upper and lower quadrant abdominal pain and nausea - Abdominal/pelvis CT reviewed by me showing acute appendicitis with no perforation. - General surgery consulted appreciate input recommendations, plan for OR this afternoon. - Will keep n.p.o., ensure hydration, continue IV fluids. Patient was given 1 L NS bolus in ED. - Will continue IV Zosyn for now. Monitor for any infection. No leukocytosis at this time. Afebrile. - CBC, BMP and UA reviewed and all essentially unremarkable. - Pain control with IV morphine as needed per pain scale. - Further treatment plan and hospitalization will depend on general surgery recommendations and clinical improvement. DVT prophylaxis: SCDs. Problem Qualifiers (1) Acute appendicitis: Qualified Codes: K35.80 - Unspecified acute appendicitis Grace Hay May 02, 2018 12:45
[2018-05-02] MEDS: SODIUM CHLOR 0.9% 1000 ML INJ 1,000 ML IV SCH (12:54)
[2018-05-02 12:59] LABS: INTERNATIONAL NORMALIZED RATIO 1.1 RATIO
[2018-05-02] MEDS ORDERED: MORPHINE SULFATE 2 MG/ML SYRINGE IV PUSH PRN (13:15)
[2018-05-02] MEDS ORDERED: PROPOFOL 200 MG/20 ML AMP ONE (15:42)
[2018-05-02] MEDS ORDERED: ONDANSETRON HCL 4 MG/2 ML VIAL ONE (15:42)
[2018-05-02] MEDS ORDERED: FAMOTIDINE 20 MG/2 ML VIAL ONE (15:43)
[2018-05-02] MEDS ORDERED: MIDAZOLAM HCL 2 MG/2 ML VIAL ONE (15:43)
[2018-05-02] MEDS ORDERED: SUGAMMADEX SODIUM 200 MG/2 ML VIAL IV PUSH ONE (15:45)
[2018-05-02] MEDS ORDERED: fentaNYL CITRATE 250 MCG/5 ML AMP ONE (15:45)
[2018-05-02] MEDS ORDERED: GLYCOPYRROLATE 0.2 MG/ML VIAL ONE (15:46)
[2018-05-02] MEDS ORDERED: ROCURONIUM INJ 50 MG/5 ML VIAL ONE ×2 (15:47)
[2018-05-02] MEDS ORDERED: PHENYLEPHRINE HCL 10 MG/ML VIAL ONE (15:48)
[2018-05-02] MEDS ORDERED: BUPIVACAINE/EPINEPHRINE 0.5% PF 30 ML VIAL ONE (15:49)
[2018-05-02] MEDS ORDERED: LACTATED RINGER'S 1000 ML INJ 1,000 ML ONE (15:57)
[2018-05-02] MEDS ORDERED: DEXAMETHASONE SOD PHOS 4 MG/ML VIAL ONE (16:00)
--- NOTE | 2018-05-02 16:20 | MB ---
cc: Williams Julian MD DATE: 05/02/2018 REASON FOR CONSULTATION: Acute appendicitis. HISTORY OF PRESENT ILLNESS: This is a 42-year-old gentleman who has had about 10 days of abdominal discomfort. He came into the emergency room about a week ago, was diagnosed with UTI and possible pneumonia. He was given antibiotic therapy. His pain got a little better, but then just got worse. He had to leave work as he was having extreme pain in his abdomen and chest. He thought it was gas and the next day he woke up and came to the emergency room. A CT scan was done which showed appendicitis. Surgery was consulted. PAST MEDICAL HISTORY: Negative for any chronic problems except for a recent diagnosis of a UTI and possible pneumonia. No cardiac history or pulmonary history. ALLERGIES: No allergies. REVIEW OF SYSTEMS: Main complaint is fever, chills, abdominal discomfort and right-sided chest wall pain. No urologic symptoms. No other GI complaints. No neurologic problems. FAMILY HISTORY: Noncontributory. SOCIAL HISTORY: He smokes a pack of cigarettes a day for 10 years. PHYSICAL EXAMINATION: GENERAL: Alert, oriented gentleman. Adequate hydration. Well developed. NECK: Supple. LUNGS: Clear. HEART: Regular rate. ABDOMEN: Slightly thin, soft with tenderness in the right lower quadrant at McBurney's point. No surgical scars. EXTREMITIES: Moves all extremities without clubbing, cyanosis or edema. NEUROLOGIC: Alert and oriented x3 without focal deficits. Cranial nerves II through XII are grossly intact. LABORATORY DATA: He had a urine test done on 04/25/2018 which showed Klebsiella. He had a white count today, which was 8, H and H of 13 and 40. Chemistry also essentially normal including LFTs. Coags are normal. IMAGING STUDIES: CT imaging shows findings consistent with appendicitis. ASSESSMENT: A 42-year-old gentleman with clinical signs and symptoms consistent with appendicitis, confirmed on radiologic imaging. PLAN: Laparoscopic appendectomy. This was explained to the patient in detail. He appeared to understand. We will schedule him in the operating room as soon as time is available. Williams Jluian MD JDB/RONEL , 03:59 PM , 04:17 PM
[2018-05-02] MEDS ORDERED: PERC5TAB12 PO (17:04)
--- NOTE | 2018-05-02 17:09 | HHI.DCPOC ---
Discharge Care Plan Diagnosis: (1) Acute appendicitis (2) S/P laparoscopic appendectomy Goals to Promote Your Health * To prevent worsening of your condition and complications * To maintain your health at the optimal level Directions to Meet Your Goals Take your medications as prescribed Follow your dietary instruction Follow activity as directed Keep your appointments as scheduled Take your immunizations and boosters as scheduled If your symptoms worsen call your PCP, if no PCP go to Urgent Care Center or Emergency Room Smoking is Dangerous to Your Health. Avoid second hand smoke Call the 24-hour hour crisis hotline for domestic abuse at Grace Hay May 02, 2018 17:09
[2018-05-02] MEDS ORDERED: MEPERIDINE HCL 25 MG/ML VIAL ONE (17:13)
--- NOTE | 2018-05-02 17:21 | MP ---
cc: Williams Julian MD, Joseph D MD DATE OF OPERATION: 05/02/2018 PREOPERATIVE DIAGNOSIS: Acute appendicitis. POSTOPERATIVE DIAGNOSIS: Acute appendicitis. PROCEDURE PERFORMED: Laparoscopic appendectomy. ANESTHESIA: General. SURGEON: Williams Julian MD INDICATIONS: The patient is a pleasant 42-year-old gentleman who had symptoms consistent with appendicitis. He was previously treated for a UTI, came back to the emergency room. CT scan showed apparent appendicitis. DESCRIPTION OF PROCEDURE: The patient was taken to the operating room and placed in the supine position. After anesthesia, his abdomen was prepped with Betadine. We make an incision just above the umbilicus. A Veress needle is inserted. Saline load test is performed. The abdomen is insufflated with 15 mmHg. A 10-mm trocar is introduced. Camera is introduced. Two of the working ports are placed, 5 mm above the pubic tubercle, a 5 mm in between the 2 previously placed ports. The appendix can be seen. It is obviously inflamed. It appears to have some diverticula on it as well. We are able to grasp the appendix and take the mesentery down with the Harmonic scalpel to the base of the appendix. Two endo ties are then placed at the appendix, PDS endo ties. The appendix is then amputated, placed in the Endo Catch pulled out through the umbilical incision and passed off the field. We then irrigate with 500 mL of saline. Gallbladder is smooth, peritoneal surfaces are smooth, liver is smooth. The appendiceal stump is hemostatic. We irrigate this, irrigate the fluid from the pelvis and the omentum is then draped over the appendiceal stump. Trocars are removed. The umbilical fascia layer is closed with 0 Vicryl and skin is closed with a 4-0 Vicryl at all 3 sites. The patient tolerated procedure well, had no immediate postop complication. Williams Julian MD JDB/ , 04:53 PM , 05:20 PM
[2018-05-02] MEDS: DOCUSATE SODIUM 50 MG/SENNA 8.6 MG TAB PO SCH (19:51)
[2018-05-02] MEDS: ACETAMINOPHEN/HYDROcodone 325 MG/5 MG TAB PO PRN (19:53)
[2018-05-02] MEDS: SODIUM CHLORIDE 0.9% FLUSH 10 ML FLUSH IV FLUSH SCH (21:00)
[2018-05-03] VITALS: BP 111/58; PULSE 84; RESP 20; TEMP 97; O2SAT 95
[2018-05-03] MEDS: ACETAMINOPHEN/HYDROcodone 325 MG/5 MG TAB PO PRN ×2 (03:32→07:55)
[2018-05-03] MEDS: SODIUM CHLOR 0.9% 1000 ML INJ 1,000 ML IV SCH ×2 (03:32→07:46)
[2018-05-03 04:00] VITALS: BP 117/68; PULSE 71; RESP 20; TEMP 97.6; O2SAT 97
--- NOTE | 2018-05-03 07:26 | HHI.PR ---
cc: Selin Gonzalez MD Subjective Subjective Notes DAILY PROGRESS NOTE FOR SURGICAL ATTENDING, DR. SELIN GONZALEZ Resting in bed No issues overnight Objective Vitals/I&O Vital Signs Date Time Temp Pulse Resp B/P (MAP) Pulse Ox O2 Delivery O2 Flow Rate FiO2 05/03/18 04:00 97.6 71 20 117/68 (84) 97 05/02/18 17:40 Room Air Labs Laboratory Tests Test 05/02/18 09:40 05/02/18 09:55 05/02/18 12:10 Urine Collection Type CLEAN CATCH Urine Color YELLOW Urine Turbidity CLEAR Urine pH 5.5 Urine Specific [place] 1.010 Urine Protein NEG Urine Glucose (UA) NEG Urine Ketones NEG Urine Occult Blood NEG Urine Nitrite NEG Urine Bilirubin NEG Urine Urobilinogen 0.2 Urine Leukocyte Esterase NEG Urine RBC 0-3 Urine Squamous Epithelial Cells 0-5 Microscopic Urinalysis Comment CULT NOT INDICATED White Blood Count 8.3 Red Blood Count 4.55 Hemoglobin 13.7 Hematocrit 40.5 Mean Corpuscular Volume 89.1 Mean Corpuscular Hemoglobin 30.2 Mean Corpuscular Hemoglobin Concent 33.9 Red Cell Distribution Width 12.2 Platelet Count 476 Mean Platelet Volume 7.2 Neutrophils (%) (Auto) 70.3 Lymphocytes (%) (Auto) 22.3 Monocytes (%) (Auto) 4.6 Eosinophils (%) (Auto) 2.0 Basophils (%) (Auto) 0.8 Neutrophils # (Auto) 5.7 Lymphocytes # (Auto) 1.9 Monocytes # (Auto) 0.4 Eosinophils # (Auto) 0.2 Basophils # (Auto) 0.1 CBC Comment DIFF FINAL Differential Comment Blood Urea Nitrogen 14 Creatinine 0.93 Random Glucose 100 Total Protein 8.8 Albumin 4.1 Calcium Level 9.4 Alkaline Phosphatase 92 Aspartate Amino Transf (AST/SGOT) 17 Alanine Aminotransferase (ALT/SGPT) 34 Total Bilirubin 1.1 Sodium Level 139 Potassium Level 3.7 Chloride Level 102 Carbon Dioxide Level 30.1 Anion Gap 7 Estimat Glomerular Filtration Rate 89 Lipase 134 Prothrombin Time 11.0 Prothromb Time International Ratio 1.1 Activated Partial Thromboplast Time 28.5 Cardiovascular: Regular Lungs: Clear Abdomen: Other (lap incision c/d/i ), Post-op tenderness Extremities: No edema A/P Problem List: (1) Acute appendicitis ICD Codes: K35.80 - Unspecified acute appendicitis Status: Acute (2) S/P laparoscopic appendectomy ICD Codes: Z90.49 - Acquired absence of other specified parts of digestive tract Assessment and Plan 42 year old male POD1 lap appy -No complications overnight -Tolerating regular diet -Pain control--- Percocet rx on -Okay to return to light duty work on Monday -Follow up with Dr. Gonzalez on May 10 at 10:30AM Attending Statement NOTE FOR SURGICAL ATTENDING, DR. SELIN GONZALEZ I agree with above assessment and plan. The exam, history, and the medical decision-making described in the above note were completed with the assistance of the mid-level provider. I reviewed and agree with the findings presented. The following services were provided during this hospital visit: Chart data review, vital sign assessments/reviewing monitor data Review of consultations notes if present. Medication orders/review and/or management Ordering and/or reviewing lab tests Ordering and/or interpreting/reviewing x-rays and/or diagnostic studies Care of the patient and discussion of the patient with the care team Documentation time To help prompt me to consider important information that might be impacting today's encounter and assessment, Information from prior notes written by myself or my colleagues may have been "brought forward/copy and pasted" into today's note. Problem Qualifiers (1) Acute appendicitis: Qualified Codes: K35.2 - Acute appendicitis with generalized peritonitis Leilani CorderoP/[employer] May 03, 2018 07:26 Selin Gonzalez MD May 03, 2018 19:24
--- NOTE | 2018-05-03 07:33 | HHI.PR ---
Subjective Remarks Patient seen and examined. No acute events overnight. States he feels much improved. Pain well controlled. Abdominal steri strips in place, no erythema, swelling or drainage. VSS. Afebrile. Patients at bedside and updated. DC home today. Objective Vitals Vital Signs Date Time Temp Pulse Resp B/P (MAP) Pulse Ox O2 Delivery O2 Flow Rate FiO2 05/03/18 04:00 97.6 71 20 117/68 (84) 97 05/03/18 00:00 97.0 84 20 111/58 (75) 95 05/02/18 20:00 96.9 80 20 128/73 (91) 97 05/02/18 17:40 97.5 68 14 115/68 (84) 92 Room Air 05/02/18 17:27 94 05/02/18 17:13 72 14 123/74 (90) 96 Room Air 05/02/18 16:57 97.8 83 14 125/65 (85) 93 Room Air 05/02/18 16:57 81 05/02/18 13:31 05/02/18 13:08 98.2 70 16 115/69 (84) 100 Room Air 05/02/18 10:55 71 16 125/75 (92) 99 Room Air 05/02/18 10:19 98 Room Air 05/02/18 09:32 98.3 77 16 118/76 (90) 98 I/O 05/02/18 05/02/18 05/02/18 05/03/18 05/03/18 05/03/18 07:00 15:00 23:00 07:00 15:00 23:00 Intake Total 1050 ml 2030 ml 1408 ml Output Total 535 ml 400 ml Balance 1050 ml 1495 ml 1008 ml Intake Oral 30 ml 240 ml IV Total 1050 ml 1300 ml 1168 ml Other 700 ml Output Urine Total 525 ml 400 ml Estimated Blood Loss 10 ml # Voids 0 Result Diagram: 05/02/1895405/02/18 0955 Imaging Last Impressions Abdomen/Pelvis CT 05/02/18 1013 Signed Impressions: CONCLUSION: 1. Findings consistent with acute appendicitis without perforation. Objective Remarks GENERAL: Well-developed, well-nourished patient in [facility]. SKIN: Warm and dry. No rash. HEAD: Normocephalic. Atraumatic. EYES: Pupils equal and round. No scleral icterus. No injection or drainage. ENT: No nasal bleeding or discharge. Mucous membranes pink and moist. NECK: Supple. Trachea midline. CARDIOVASCULAR: Regular rate and rhythm. S1, S2 noted. No murmur appreciated. RESPIRATORY: No accessory muscle use. Clear to auscultation. Breath sounds equal bilaterally. GASTROINTESTINAL: Abdomen soft, nondistended. Normoactive bowel sounds x4. Mild tenderness to right upper quadrant. Steri strips in place and c/d/i. MUSCULOSKELETAL: No obvious deformities. Extremities without clubbing, cyanosis , or edema. NEUROLOGICAL: Awake and alert. No obvious cranial nerve deficits. Motor grossly within normal limits. 5/5 muscle strength in bilateral upper and lower extremities. Normal speech. PSYCHIATRIC: Appropriate mood and affect; insight and judgment normal. A/P Problem List: (1) Acute appendicitis ICD Code: K35.80 - Unspecified acute appendicitis Status: Acute Assessment and Plan This is a pleasant 42-year-old male patient with no known medical history who presented to the ED with complaints of severe right upper quadrant abdominal pain. Acute appendicitis with associated severe right sided upper and lower quadrant abdominal pain and nausea. Resolved. - Abdominal/pelvis CT reviewed by me showing acute appendicitis with no perforation. - General surgery consulted appreciate input recommendations, status post appendectomy yesterday. - Tolerating PO intake. No abdominal pain, n/v. - Will continue IV Zosyn for now. Monitor for any infection. No leukocytosis at this time. Afebrile. - CBC, BMP and UA reviewed and all essentially unremarkable. - Pain control with IV morphine as needed per pain scale. Transitioned to PO pain medications. - DC home with f/u with surgeon and PCP. - All symptoms improved. DVT prophylaxis: SCDs. Discharge patient to home. Condition on discharge: Improved. Regular Diet as tolerated. Ad Bree activity. Rx written: Please see DC instructions. Follow-up with primary care physician and surgeon. Problem Qualifiers (1) Acute appendicitis: Qualified Codes: K35.80 - Unspecified acute appendicitis BhartiKettyGracebetty MERA May 03, 2018 07:33
[2018-05-03] MEDS: DOCUSATE SODIUM 50 MG/SENNA 8.6 MG TAB PO SCH ×2 (07:47→07:55)
[2018-05-03] MEDS: SODIUM CHLORIDE 0.9% FLUSH 10 ML FLUSH IV FLUSH SCH (07:47)
--- NOTE | 2018-05-03 18:16 | EKG ---
Date Performed: 05/02/2018 Time Performed: 12:29:13 PTAGE: 42 years EKG: SINUS BRADYCARDIA INCOMPLETE RIGHT BUNDLE BRANCH BLOCK BORDERLINE ECG NO PREVIOUS TRACING DOCTOR: Mary Larkin Interpretating Date/Time 05/03/2018 18:12:52
== END 2018-05-03 08:31 | disposition home or self-care (01) ==
LOC: PHED 09:28 → PHEDA 12:30 → PH3B 13:40
PROVIDERS: ADMIT Hospitalist; ATTEND Hospitalist
DX: K35.2 Acute appendicitis with generalized peritonitis (principal); R94.31 Abnormal electrocardiogram [ECG] [EKG]; F17.210 Nicotine dependence, cigarettes, uncomplicated; Z87.440 Personal history of urinary (tract) infections; Z80.0 Family history of malignant neoplasm of digestive organs; Z82.49 Family history of ischemic heart disease and other diseases of the circulatory system
CPT/HCPCS: 00840; 44970; 74177; 80053; 81001; 83690; 85025; 85610; 85730; 88304; 93005; 96361; 96365; 96375; 96376; 99285; G0378; J1100; J1885; J2175; J2250; J2405; J2543; J3010; J7030; J7120; Q9967; J2370

== ENCOUNTER 2018-05-15 23:31 | Emergency (ER) | payer BC ==
[~2018-05-15] VITALS: Ht 182.9 cm; Wt 73.7 kg
[~2018-05-15 23:31] MED LIST changes: -HYDR-3288 PO; +PERC5TAB12 PO
[2018-05-15 23:38] VITALS: BP 106/69; PULSE 75; RESP 18; TEMP 98.1; O2SAT 98
[2018-05-15 23:40] VITALS: BP 118/63; PULSE 80; RESP 18; TEMP 98.5; O2SAT 98
[2018-05-16 00:05] VITALS: BP 118/63; PULSE 76; RESP 20; O2SAT 98
--- NOTE | 2018-05-16 00:13 | PD ---
HPI Chief Complaint: Chest Pain Time Seen by Provider: 00:01 Travel History International Travel<30 days: No Contact w/Intl Traveler<30days: No Traveled to known affect area: No History of Present Illness HPI The patient is a 43-year-old male that complains of a sharp, pleuritic chest pain that also hurts with movements of his arms since 6:30 PM tonight. The patient had a history of a chest x-ray taken on the sixth of this month which showed no acute cardiopulmonary abnormality but a linear opacity at the right lung base representing either subsegmental atelectasis or parenchymal scar. The patient states the pain is higher now around the right breast and the pain is sharper. The pain is sharp and pleuritic and a 7/10. He denies any fever. He denies any shortness of breath or hemoptysis. He denies any cough. The patient does smoke an electronic cigarette. PFSH Past Medical History Diminished Hearing: No Genitourinary: Yes Pneumonia: Yes Tetanus Vaccination: Unknown Influenza Vaccination: No Past Surgical History Appendectomy: Yes Social History Alcohol Use: No Tobacco Use: Yes (vape daily ) Substance Use: No Allergies-Medications (Allergen,Severity, Reaction): Coded Allergies: No Known Allergies (Verified Adverse Reaction, Unknown, 05/16/18) Reported Meds & Prescriptions Reported Meds & Active Scripts Active Ibuprofen 800 Mg Tab 800 Mg PO TID Reported Hydrocodone-Acetaminophen 5-325 mg Tab 1 Tab PO Q4H PRN Review of Systems Except as stated in HPI: all other systems reviewed are Neg Physical Exam Narrative GENERAL: Well-nourished, well-developed patient. SKIN: Focused skin assessment warm/dry. HEAD: Normocephalic. EYES: No scleral icterus. No injection or drainage. NECK: Supple, trachea midline. No JVD or lymphadenopathy. CARDIOVASCULAR: Regular rate and rhythm without murmurs, gallops, or rubs. I cannot reproduce the patient's chest pain by pressing on the chest wall. RESPIRATORY: Breath sounds equal bilaterally. No accessory muscle use. Lungs clear to auscultation bilaterally. GASTROINTESTINAL: Abdomen soft, non-tender, nondistended. MUSCULOSKELETAL: No cyanosis, or edema. BACK: Nontender without obvious deformity. No CVA tenderness. Data Data Last Documented VS Vital Signs Date Time Temp Pulse Resp B/P (MAP) Pulse Ox O2 Delivery O2 Flow Rate FiO2 05/16/18 00:15 96 Room Air 05/16/18 00:05 76 20 118/63 (81) 05/15/18 23:40 98.5 Orders Orders Chest, Pa & Lat (05/16/18 00:14) Electrocardiogram (05/16/18 00:30) Ketorolac Inj (Toradol Inj) (05/16/18 01:15) MDM Medical Decision Making Medical Screen Exam Complete: Yes Emergency Medical Condition: Yes Medical Record Reviewed: Yes Interpretation(s) The EKG shows sinus rhythm with a rate of [address] elevation or depression. The chest x-ray shows a questionable small focal density in the right lateral chest related to either the right fourth rib or small pulmonary nodule. Differential Diagnosis The chest x-ray shows a questionable small focal density in the right lateral chest related to either the right fourth rib or small pulmonary nodule. The patient should be put on anti-inflammatory medication and he may need to repeat the chest x-ray in about 6 weeks if he still has pain. Narrative Course The patient has a possible pulmonary nodule exactly where the patient feels his pain. We will try an anti-inflammatory medication and he should repeat the chest x-ray in about 6 weeks if he still feels pain in this area. Diagnosis Primary Impression: Pleuritic chest pain Additional Instructions: I prescribed Motrin to take 1 tablet 3 times daily the see if this calms her down. This does not appear to be a pneumonia but a small pulmonary nodule. If you still have problems after about 6 weeks it is probably a good idea to repeat the x-ray. Med/Other Pt SpecificInfo: Prescription(s) given Scripts Ibuprofen (Ibuprofen) 800 Mg Tab 800 MG PO TID, #33 TAB 0 Refills Prov: Rusty Gonzalez MD 05/16/18 Disposition: 01 DISCHARGE HOME Condition: Stable Rusty Gonzalez MD May 16, 2018 00:13
[2018-05-16] MEDS ORDERED: HYDR-3516 PO (00:14)
--- NOTE | 2018-05-16 00:56 | RADRPT ---
EXAM DATE: 05/16/2018 12:46 AM EDT AGE/SEX: 43 years / Male INDICATIONS: Right sided chest pain. Patient states pain in more in upper right side of chest. CLINICAL DATA: This is the patient's initial encounter. Patient reports that signs and symptoms have been present for 1 day and indicates a pain score of 7/10. MEDICAL/SURGICAL HISTORY: None. None. COMPARISON: [facility], CHEST PA & LAT, 04/25/2018. . FINDINGS: The heart size is normal. There is a questionable small 0.6 cm focal density in the lateral right mid chest. This could be related to the fourth anterior right rib. An underlying small lung mass cannot be excluded. The lungs are otherwise clear. No effusion is seen. CONCLUSION: Questionable small focal density in the right lateral chest related to either the right fourth rib or small pulmonary nodule. Electronically signed by: Carlo Shelley MD 05/16/2018 12:55 AM EDT
[2018-05-16] MEDS ORDERED: IBUP1TAB7 PO (01:10)
[2018-05-16] MEDS ORDERED: KETOROLAC TROMETHAMINE 60 MG/2 ML (IM) VIAL IM ONE (01:15)
[2018-05-16 01:45] VITALS: BP 126/66
--- NOTE | 2018-05-16 20:37 | EKG ---
Date Performed: 05/15/2018 Time Performed: 23:44:42 PTAGE: 43 years EKG: Sinus rhythm INCOMPLETE RIGHT BUNDLE BRANCH BLOCK BORDERLINE ECG PREVIOUS TRACING : 05/02/2018 12.29 Since the previous tracing, no significant change noted DOCTOR: Isiah Jessica Interpretating Date/Time 05/16/2018 20:36:45
== END 2018-05-16 01:45 | disposition home or self-care (01) ==
LOC: PHED 23:31
DX: R07.81 Pleurodynia (principal); F17.290 Nicotine dependence, other tobacco product, uncomplicated
CPT/HCPCS: 71046; 93005; 96372; 99284; J1885